=== PATIENT | female | born 1955 | race Two or more races ===

== ENCOUNTER 2018-07-07 07:54 | Outpatient (CLI) | payer OTHER | END 2018-07-07 08:14 | disposition home or self-care (01) | LOC: MAMO-SONO 07:54 | DX: Z12.31 Encounter for screening mammogram for malignant neoplasm of breast (principal) ==

== ENCOUNTER 2021-10-14 09:50 | Outpatient (CLI) | payer OTHER | END 2021-10-14 09:56 | disposition home or self-care (01) | LOC: MAMO-SONO 09:50 | PROVIDERS: ATTEND General Practice | DX: J44.0 Chronic obstructive pulmonary disease with (acute) lower respiratory infection (principal); Z12.31 Encounter for screening mammogram for malignant neoplasm of breast ==

== ENCOUNTER 2023-03-16 09:26 | Outpatient (CLI) | payer OTHER | END 2023-03-16 09:42 | disposition home or self-care (01) | LOC: TOM 09:26 | PROVIDERS: ATTEND General Practice | DX: Z12.31 Encounter for screening mammogram for malignant neoplasm of breast (principal); J44.9 Chronic obstructive pulmonary disease, unspecified ==

== ENCOUNTER 2023-12-23 10:53 | Outpatient (CLI) | payer OTHER | END 2023-12-23 11:00 | disposition home or self-care (01) | LOC: MAMO-SONO 10:53 | PROVIDERS: ATTEND General Practice | DX: N64.4 Mastodynia (principal); Z12.31 Encounter for screening mammogram for malignant neoplasm of breast; J44.9 Chronic obstructive pulmonary disease, unspecified ==